=== PATIENT | male | born 1975 | race Caucasian/White ===

== ENCOUNTER 2023-04-30 15:45 | Emergency (ER) | payer OTHER ==
[~2023-04-30] VITALS: Ht 180.3 cm; Wt 99.8 kg
[2023-04-30 15:56] VITALS: BP 119/75; PULSE 89; RESP 18; TEMP 98.5; O2SAT 99
[2023-04-30 17:34] LABS: BASOPHILS % (AUTO) 0.5 % (0.0-2.0); EOSINOPHILS % (AUTO) 0.4 % (0.0-4.0); HEMATOCRIT 42.3 % (36-52); HEMOGLOBIN 14.5 g/dL (12.0-18.0); LYMPHOCYTES # (AUTO) 1.6 K/uL (2.0-11.5); LYMPHOCYTES % (AUTO) 23.3 % (20.5-51.1); MEAN CORPUSCULAR HEMOGLOBIN 31 pg (27-31); MEAN CORPUSCULAR HGB CONC 34 g/dL (33-37); MEAN CORPUSCULAR VOLUME 91.4 fL (80-94); MONOCYTES # (AUTO) 0.4 K/uL (0.8-1.0); MONOCYTES % (AUTO) 5.8 % (1.7-9.3); NEUTROPHILS # (AUTO) 4.9 K/uL (1.8-7.7); PLATELET COUNT (AUTO) 181 K/uL (140-450); RED BLOOD CELL COUNT(AUTO) 4.62 MIL/uL (4.20-6.10); RED CELL DISTRIBUTION WIDTH 14.1 % (11.6-13.7)
--- NOTE | 2023-04-30 17:43 | NUR ---
PT TAKEN TO CT
[2023-04-30 17:59] LABS: SALICYLATE < 2.8 mg/dL (2.8-20.0)
[2023-04-30 18:03] LABS: ACETAMINOPHEN < 0.5 ug/ml (10-30)
--- NOTE | 2023-04-30 18:12 | NUR ---
ASSUME CARE OF PT AT THIS TIME
[2023-04-30 18:13] LABS: ANION GAP 10.6 (8-16); CREATININE 0.9 mg/dL (0.6-1.3); POTASSIUM 3.6 mmol/L (3.5-5.1); TOTAL BILIRUBIN 0.3 mg/dL (0.0-1.0)
[2023-04-30 18:17] LABS: APPEARANCE,URINE CLEAR (CLEAR); BILIRUBIN,URINE NEGATIVE (NEGATIVE); BLOOD, URINE NEGATIVE (NEGATIVE); COLOR,URINE YELLOW (YELLOW); LEUKOCYTE ESTERASE ,URINE NEGATIVE (NEGATIVE); NITRITE, URINE NEGATIVE (NEGATIVE); UGLUCOSE 3+ (NEGATIVE)
--- NOTE | 2023-04-30 18:49 | NUR ---
[facility] - WILL SEND OUT AN OFFICER.
[2023-04-30 19:25] LABS: BARBITURATE, URINE NEGATIVE ng/ml (NEG <=200); BENZODIAZEPINE, URINE NEGATIVE ng/mL (NEG <=200); CANNABINOID, URINE NEGATIVE ng/mL (NEG <=50); COCAINE, URINE NEGATIVE ng/mL (NEG <=300); OPIATE, URINE NEGATIVE ng/mL (NEG <=2000); PHENCYCLIDINE SCREEN,URINE NEGATIVE ng/mL (NEG <=25)
--- NOTE | 2023-04-30 19:29 | NUR ---
RECEIVED REPORT FORM ANA PINA. PT RESTING IN BED ON BEDSIDE MONITOR. SR WITH PVC'S. C/O CP AND RECTAL PAIN 04/14.
[2023-04-30] MEDS ORDERED: traZODone 50 MG TAB PO SCH (21:00)
[2023-04-30] MEDS: busPIRone 5 MG TAB PO SCH (21:29)
--- NOTE | 2023-04-30 21:48 | NUR ---
PT ON BEDSIDE MONITOR. PT RESTING IN BED WITH LEFT SIDE CP 04/14. NO C/O SOB.
[2023-05-01] VITALS (7 sets, daily range): BP systolic 117; BP diastolic 78; PULSE 89; RESP 15; TEMP 98.1; O2SAT 96–99
--- NOTE | 2023-05-01 01:51 | NUR ---
PT ASLEEP COMFORTABLY ON BEDSIDE MONITOR.
--- NOTE | 2023-05-01 04:10 | NUR ---
PT ASLEEP COMFORTABLY ON BEDSIDE MONITOR.
--- NOTE | 2023-05-01 07:18 | NUR ---
REPORT RECEIVED FROM LEONARDO WORLEY.
--- NOTE | 2023-05-01 07:31 | NUR ---
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
--- NOTE | 2023-05-01 08:36 | NUR ---
SPOKE TO RITO FROM [facility], STATES WILL ACCEPT PT A VOLUNTARY PT. ACCEPTED UNDER DR ESTRADA
[2023-05-01] MEDS ORDERED: SERTRALINE 50 MG TAB PO SCH (09:00)
[2023-05-01] MEDS: busPIRone 5 MG TAB PO SCH (09:14)
--- NOTE | 2023-05-01 09:31 | NUR ---
Patient discharged with v/s stable. Written and verbal after care instructions given and explained. Patient verbalized understanding. Ambulatory with to car. All questions addressed prior to discharge. Advised to follow up with PMD. [facility] CALLED TO TRANSPORT TO [facility].
--- NOTE | 2023-05-01 09:40 | NUR ---
Patient discharged with v/s stable. Written and verbal after care instructions given and explained. Patient verbalized understanding. Ambulatory with steady gait. All questions addressed prior to discharge. Advised to follow up with PMD.
--- NOTE | 2023-05-01 09:48 | NUR ---
The patient's care was reviewed and supervised by ED Agency Nurse 7, RN, RN.
== END 2023-05-01 09:31 | disposition home or self-care (01) ==
LOC: MED 15:45
DX: K62.5 Hemorrhage of anus and rectum (principal); R45.851 Suicidal ideations; K57.90 Diverticulosis of intestine, part unspecified, without perforation or abscess without bleeding; R73.9 Hyperglycemia, unspecified; F32.A Depression, unspecified; F41.9 Anxiety disorder, unspecified; Z79.899 Other long term (current) drug therapy
CPT/HCPCS: 36415; 74176; 80053; 80305; 81003; 83690; 85025; 93005; 99285; G0480; G0482